=== PATIENT | female | born 1975 | race Caucasian/White ===

== ENCOUNTER 2023-11-24 16:04 | Outpatient (REF) | payer MEDICAID, SELFPAY ==
--- NOTE | 2023-11-24 15:15 | PAPFT_PTH ---
PATIENT: Jennyfer BACK LOC: [facility] U#:[id number] AGE/SX: 48/F ROOM: RE11/24/[address]: Lyric Holman MD : 1975 BED: DIS: 11/24/2023 SPEC #: [id number] RECD: 11/24/23 18:15 STATUS: MARU REAlber #: [id number] AZRA: 11/24/23 15:[address]: Lyric Holman DEPT: [facility] Cytology RECD BY: Hiwot Aly ENTERED: 11/24/23 18:15 SP TYPE: PAPFT OTHR DR: Keyon Malloy Tissues: 1 - CX/ENDOCX FOR PAP SMEARS Procedures: PAP THIN PREP/[facility] Screening HPV DNA PROBE Comments: [id number]
== END 2023-11-24 16:05 | disposition home or self-care (01) ==
LOC: LBN 16:04
PROVIDERS: PCP Physician Assistant; Visit Provider Obstetrics & Gynecology
DX: Z01.419 Encounter for gynecological examination (general) (routine) without abnormal findings (principal)
CPT/HCPCS: 88142; 87624

== ENCOUNTER 2024-11-27 11:34 | Outpatient (REF) | payer MEDICAID, SELFPAY ==
--- NOTE | 2024-11-27 09:00 | PAPFT_PTH ---
PATIENT: Jennyfer BACK LOC: [facility] U#:[id number] AGE/SX: 49/F ROOM: RE11/27/[address]: Lyric Holman MD : 1975 BED: DIS: 11/27/2024 SPEC #: [id number] RECD: 11/27/24 13:02 STATUS: MARU DAFNE #: [id number] AZRA: 11/27/24 09:[address]: Lyric Holman DEPT: [facility] Cytology RECD BY: Hiwot Aly ENTERED: 11/27/24 13:03 SP TYPE: PAPFT OTHR DR: Keyon Malloy Tissues: 1 - CX/ENDOCX FOR PAP SMEARS Procedures: PAP THIN PREP/[facility] Screening HPV DNA PROBE Comments: [id number] (HPV 16 & 18/45)
== END 2024-11-27 11:35 | disposition home or self-care (01) ==
LOC: LBN 11:34
PROVIDERS: PCP Physician Assistant; Visit Provider Obstetrics & Gynecology
DX: Z12.4 Encounter for screening for malignant neoplasm of cervix (principal)
CPT/HCPCS: 88142; 87624